=== PATIENT | female | born 1990 | race Caucasian/White ===

== ENCOUNTER 2017-05-15 15:11 | Emergency (ER) | payer OTHER ==
[~2017-05-15 15:11] MED LIST: ACID CONTROL150 M1 PO; BUSPAR PO; CATAPRES-TTS-20.2 M1 PO; CIPRO PO; CLEOCIN150 M1 PO; CLONIDINE HCL0.1 MG; DELTASONE20 MG PO; DIAZEPAM PO; FLEXERIL10 M1 PO; GABAPENTIN300 M2 PO; INDERAL20 MG PO; NEURONTIN; NEURONTIN PO; NO MEDICATIONS; PERCOCET 5-3251 TAB PO; PHENERGAN PO; PHENERGAN/CODEIN5 ML PO; PHENERGAN25 MG PO; PRILOSEC20 M1 PO; PROPRANOLOL HCL20 MG; TRAZODONE HCL150 MG PO; TRILEPTAL PO; TYLENOL #3 PO; VIBRAMYCIN100 M1 DOB; VICODIN 5/1 TAB 5/50 PO; VISTARIL PO; VOLTAREN50 MG PO; ZANTAC150 MG PO; [UNRECOGNIZED DRUG - OTHER] VG
== END 2017-05-15 15:34 | disposition left against medical advice (07) ==
LOC: SED 15:11
DX: Z53.21 Procedure and treatment not carried out due to patient leaving prior to being seen by health care provider (principal)